=== PATIENT | male | born 1935 | race Caucasian/White ===

== ENCOUNTER 2017-03-27 10:56 | Inpatient (IN) | payer MEDICARE, MEDICAID ==
[2017-03-27] MEDS ORDERED: Sodium Chloride 0.9% 10 ML Syringe FLUSH PRN (11:14)
[2017-03-27] MEDS ORDERED: Sodium Chloride 0.9% 1,000 ML IV ONE (11:17)
[2017-03-27] MEDS ORDERED: Ertapenem 1 GM in Sodium Chloride 0.9% 100 ML IV ONE (11:52)
[2017-03-27 12:34] LABS: CHLORIDE,CL 106 mmol/L (98-107); SODIUM,NA 145 mmol/L (136-145)
[2017-03-27] MEDS ORDERED: Hydrocortisone Sodium Succinate 100 MG/2 ML SDV IVPUSH ONE (13:38)
[2017-03-27] MEDS ORDERED: Hydrocortisone Sodium Succinate 100 MG/2 ML SDV ONE (13:55)
[2017-03-27] MEDS ORDERED: Levofloxacin/Dextrose 5%-Water 750 MG in Premix Bag 1 BAG IV SCH (14:00)
[2017-03-27] MEDS: Sodium Chloride 0.9% 1,000 ML IV SCH ×2 (14:28→23:31)
--- NOTE | 2017-03-27 14:41 | PCM.HP ---
H&P History of Present Illness - General Date of Service: 03/27/17 Admit Problem/Dx: Admission Diagnosis/Problem Admission Diagnosis/Problem Pneumonia Source of Information: Patient, Senior Care Records, Old Records - History of Present Illness Initial Comments - Free Text/Narative: 81 yo [place] resident of the special care unit due to Schizoaffective disorder and dementia. He has a hx of bronchitis and smoking. He was treated for an exacerbation on 03/10 with doxycycline for 1 week and prednisone 20 mg daily for 5 days. He finished the ABX on 03/17 and tells me he really hasn't improved. Nursing noted worsening of hypoxia this morning. He normally uses 2-3 L but they increased him up to 4 L due to sats around 85%. Sats did drop to 79% briefly off oxygen for transfer in the ER from the ambulance cot. He was placed on a NRB and sats rebounded. He did receive 125 of Hydrocortisone and IV Invanz in ER. He has had only low grade fevers like 99%. He has had pneumonia before. He denies trouble swallowing or aspiration. He is on a regular diet with textured foods. He denies pain. He did receive a neb prior to leaving the [place], these were scheduled BID. He is on no maintenance inhalers. Duration of Symptoms: Reports: Week(s): - Related Data Allergies/Adverse Reactions: Allergies Allergy/AdvReac Type Severity Reaction Status Date / Time cefaclor Allergy Other Verified 03/27/17 11:13 celecoxib [From Celebrex] Allergy Other Verified 03/27/17 11:14 Penicillins Allergy Other Verified 03/27/17 11:13 Home Medications: Home Meds ARIPiprazole [Abilify] 30 mg PO DAILY 03/27/17 [History] Acetaminophen [Tylenol] 650 mg PO Q4H PRN 03/27/17 [History] Albuterol Sulfate [Proventil Hfa] 1 puff IH Q6H PRN 03/27/17 [History] Albuterol/Ipratropium [DuoNeb 3.0-0.5 MG/3 ML] 3 ml NEB Q2H PRN 03/27/17 [ History] Albuterol/Ipratropium [DuoNeb 3.0-0.5 MG/3 ML] 3 ml NEB Q6HRRT 03/27/17 [History ] Alum Hydroxide/Mag Hydroxide [Mag-Al Susp] 30 ml PO QID PRN 03/27/17 [History] Ascorbic Acid [Vitamin C] 250 mg PO DAILY 03/27/17 [History] Cholecalciferol (Vitamin D3) [Vitamin D3] 2,000 units PO DAILY 03/27/17 [History ] Dextran 70/Hypromellose [Artificial Tears] 2 drop EYEBOTH BID 03/27/17 [History] Docusate Sodium/Sennosides [Senna Plus] 2 tab PO DAILY 03/27/17 [History] Donepezil HCl [Aricept] 10 mg PO DAILY 03/27/17 [History] Iron Polysaccharides Complex [Ferrex 150] 150 mg PO DAILY 03/27/17 [History] LORazepam [Ativan] 0.5 mg PO BID PRN 03/27/17 [History] Loratadine [Claritin] 10 mg PO DAILY 03/27/17 [History] Nitroglycerin 0.4 mg SL ASDIRECTED PRN 03/27/17 [History] OLANZapine [ZyPREXA] 20 mg PO DAILY 03/27/17 [History] Parab/Cet Alc/Stryl Alc/Pg/Sls [Cetaphil Cleansing Lotion] 240 ml TP DAILY 03/27 [History] Parab/Cet Alc/Stryl Alc/Pg/Sls [Cetaphil Daily Facial Cleanser] 473 ml TP DAILY 03/27/17 [History] Polyethylene Glycol 3350 [MiraLAX] 17 gm PO DAILY 03/27/17 [History] Prednisone [IJD: predniSONE] 40 mg PO WITHBREAKFAST 03/27/17 [History] Past Medical History Cardiovascular History: Reports: CAD, Hypertension, Other (See Below) Other Cardiovascular History: chest pain Respiratory History: Reports: COPD Gastrointestinal History: Reports: Chronic Constipation Genitourinary History: Reports: Renal Disease, Urinary Incontinence Musculoskeletal History: Reports: Other (See Below) Other Musculoskeletal History: poliomyelitis Psychiatric History: Reports: Alzheimers Disease, Anxiety, Dementia, Depression , Psychosis, Other (See Below) Other Psychiatric History: schizoaffective d/o Endocrine/Metabolic History: Reports: Vitamin D Deficiency Hematologic History: Reports: Anemia - History Comment History Comment: Schizoaffective disorder, bipolar type. Admit [facility], after Rx at [facility], during which he had temporary hospitalization at the [facility] for exacerbation of COPD. See also dementia with behavior disorder. 12/14 Hosp 2 weeks at [facility] for behavioral crisis, then back to [facility]. Dementia. 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 12/13 Admit to [facility], continue F/U with Dr. Lopez. Hypertension. Details unknown, Rx Lopressor daily, will need to change to Toprol-XL. COPD (chronic obstructive pulmonary disease). Details unknown, smoking Hx unknown; 12/13 says has been on nasal oxygen many years. Hospital at [facility] for exacerbation. 01/14 Rx doxycycline for exacerbation; same again 03/16, 01/15. Coronary artery disease Details unknown, but has sternotomy scar, presumed CABG. See also COPD. Actinic keratoses. Especially on face, had been on topical steroid, D/C'd, rash or worse again so Kenalog Rx 2 weeks. Consider Derm consult if not improving, might need CryoRx or 5-FU. 01/15 Derm consult, had extensive CryoRx. Chronic kidney disease. Stage and details unknown, DX 11/13 at [facility], during hospitalization for exacerbation of COPD. creatinine 1.75, GFR 36. History of poliomyelitis. As child, residual shortening R leg, wears builtup shoe nearly 6". Has been able to walk independently Social & Family History - Family History Family Medical History: Unobtainable - Tobacco Use Smoking Status *Q: Former Smoker Years of Tobacco use: 60 Used Tobacco, but Quit: Yes Month Tobacco Last Used: unknown - Recreational Drug Use Recreational Drug Use: No H&P Review of Systems - Review of Systems: Review Of Systems: See Below General: Reports: Weakness, Fatigue, Decreased Appetite HEENT: Denies: Dysphasia, Headaches, Sinus Congestion, Sore Throat Pulmonary: Reports: Shortness of Breath, Cough, Sputum. Denies: Wheezing, Pleuritic Chest Pain, Hemoptysis Cardiovascular: Reports: Dyspnea on Exertion. Denies: Chest Pain, Palpitations , Edema, Lightheadedness Gastrointestinal: Denies: Abdominal Pain, Constipation, Diarrhea Genitourinary: Reports: No Symptoms Musculoskeletal: Reports: No Symptoms Skin: Reports: No Symptoms Psychiatric: Denies: Confusion, Depression, Anxiety, Agitation Neurological: Denies: Confusion, Dizziness, Headache Hematologic/Lymphatic: Reports: Anemia. Denies: Easy Bleeding Immunologic: Reports: No Symptoms Exam - Exam Exam: See Below - Vital Signs Vital Signs: Last Vital Signs Temp 97 F 03/27/17 11:14 Pulse 84 03/27/17 14:15 Resp 18 03/27/17 14:15 BP 117/69 03/27/17 14:15 Pulse Ox 98 03/27/17 14:15 - Exam Quality Assessment: Supplemental Oxygen General: Oriented, Other (easily arousable but sleepy). No: Mild Distress, Moderate Distress HEENT: Conjunctiva Clear, EOMI, Pupils Equal, Pupils Reactive Neck: Supple, Trachea Midline. No: JVD, Thyromegaly Lungs: Decreased Breath Sounds, Crackles, Rales (crackles noted over the left base). No: Wheezing GI/Abdominal Exam: Normal Bowel Sounds, Soft, Non-Tender Back Exam: Normal Inspection Extremities: Non-Tender, No Pedal Edema Peripheral Pulses: 2+: Dorsalis Pedis (L), Dorsalis Pedis (R) Skin: Warm, Dry, Intact Neuro Extensive - Mental Status: Alert, Oriented x3, Normal Cognition, Opens Eyes to Commands Neuro Extensive - Motor, Sensory, Reflexes: No: Normal Gait (he was too weak to observe his gait) Psychiatric: Alert, Normal Mood - Patient Data Result Diagrams: 03/27/17 11:30 03/27/17 11:30 EKG INTERPRETATION EKG Date: 03/27/17 Rhythm: NSR P-Wave: Present QRS: Normal ST-T: Normal QT: Normal Comparison: NA - No Prior EKG EKG Interpretation Comments: PACs noted *Q Meaningful Use (ADM) - VTE *Q VTE Criteria *Q: - VTE Risk Assess *Q Each Risk Factor Represents 3 Points: Age 75 Years or Greater Total Score 3 Point Risk Factors: 3 - Stroke *Q Stroke Criteria *Q: - AMI *Q AMI Criteria *Q: - Problem List (1) Lung nodule SNOMED Code(s): 297669645 ICD Code: R91.1 - SOLITARY PULMONARY NODULE Status: Acute Priority: Medium Current Visit: Yes Onset Date: ~03/27/17 Problem Details: 1.6 cm to the R upper lobe (2) Pneumonia SNOMED Code(s): 213515488 ICD Code: J18.9 - PNEUMONIA, UNSPECIFIED ORGANISM Status: Acute Priority : High Current Visit: Yes Onset Date: ~03/27/17 Problem Details: gram positive cocci in chains, patient resident of [facility] Qualifiers: Pneumonia type: due to unspecified organism Laterality: left Lung location: lower lobe of lung Qualified Code(s): J18.1 - Lobar pneumonia, unspecified organism (3) COPD with exacerbation SNOMED Code(s): 189504075, 113095805 ICD Code: J44.1 - CHRONIC OBSTRUCTIVE PULMONARY DISEASE W (ACUTE) EXACERBATION Status: Acute Priority: High Current Visit: Yes (4) Acute and chronic respiratory failure with hypoxia SNOMED Code(s): 811270800, 572199713 ICD Code: J96.21 - ACUTE AND CHRONIC RESPIRATORY FAILURE WITH HYPOXIA Status: Acute Priority: High Current Visit: Yes (5) Schizoaffective disorder SNOMED Code(s): 95973636 ICD Code: F25.9 - SCHIZOAFFECTIVE DISORDER, UNSPECIFIED Status: Chronic Priority: Medium Current Visit: Yes Qualifiers: Schizoaffective disorder type: unspecified Qualified Code(s): F25.9 - Schizoaffective disorder, unspecified (6) Dementia SNOMED Code(s): 82467094 ICD Code: F03.90 - UNSPECIFIED DEMENTIA WITHOUT BEHAVIORAL DISTURBANCE Status: Acute Current Visit: Yes Qualifiers: Dementia type: unspecified type Dementia behavioral disturbance: without behavioral disturbance Qualified Code(s): F03.90 - Unspecified dementia without behavioral disturbance (7) CAD (coronary artery disease) SNOMED Code(s): 62504783 ICD Code: I25.10 - ATHSCL HEART DISEASE OF [place] CORONARY ARTERY W/O ANG PCTRS Status: Chronic Priority: Medium Current Visit: Yes Qualifiers: Coronary Disease-Associated Artery/Lesion type: [place] artery [place] vs. transplanted heart: [place] heart Associated angina: without angina Qualified Code(s): I25.10 - Atherosclerotic heart disease of [place] coronary artery without angina pectoris (8) Anemia SNOMED Code(s): 656478993 ICD Code: D64.9 - ANEMIA, UNSPECIFIED Status: Chronic Priority: Medium Current Visit: Yes Qualifiers: Anemia type: iron deficiency Iron deficiency anemia type: unspecified iron deficiency Qualified Code(s): D50.9 - Iron deficiency anemia, unspecified (9) CKD (chronic kidney disease) stage 3, GFR 30-59 ml/min SNOMED Code(s): 227655619 ICD Code: N18.3 - CHRONIC KIDNEY DISEASE, STAGE 3 (MODERATE) Status: Chronic Priority: Medium Current Visit: Yes Problem Details: last creatinine prior to admit was 1.7 the year before it was 1.4 Problem List Initiated/Reviewed/Updated: Yes Orders Last 24hrs: Active Orders 24 hr Category Date Time Status Antiembolic Devices [RC] PER UNIT ROUTINE Care 03/27/17 14:17 Active Flutter Valve Therapy [RT Chest Physiotherapy] [RC] Care 03/27/17 14:22 Active ASDIRECTED Intake and Output [RC] 06,18 Care 03/27/17 14:16 Active Oxygen Therapy [RC] , Care 03/27/17 14:12 Active Oxygen Therapy [RC] PRN Care 03/27/17 14:15 Active Pneumonia Education [RC] Click to Edit Care 03/27/17 14:12 Active RT Aerosol Therapy [RC] ASDIRECTED Care 03/27/17 14:15 Active RT Aerosol Therapy [RC] ASDIRECTED Care 03/27/17 14:20 Active RT Incentive Spirometry [RC] 08,20 Care 03/27/17 14:12 Active Up With Assistance [RC] ,20 Care 03/27/17 14:15 Active VTE/DVT Education [RC] PER UNIT ROUTINE Care 03/27/17 14:15 Active Vital Signs [RC] 06,10,14,18,22,02 Care 03/27/17 14:15 Active Respiratory Care Assess and Treatment [CONS] Routine Cons 03/27/17 14:15 Active Regular Diet [DIET] Diet 03/27/17 Dinner Active CULTURE MRSA CLEARANCE [RM] Routine Lab 03/27/17 14:29 Ordered Albuterol/Ipratropium [DuoNeb 3.0-0.5 MG/3 ML] Med 03/27/17 14:12 Active 3 ml NEB Q4H PRN Albuterol/Ipratropium [DuoNeb 3.0-0.5 MG/3 ML] Med 03/27/17 14:30 Active 3 ml NEB Q6HRRT Heparin Sodium Med 03/27/17 14:00 Active 5,000 units SUBCUT Q12H Levofloxacin/Dextrose 5%-Water [Levaquin in D5W 750 MG/ Med 03/27/17 14:00 Active 150 ML] 750 mg Premix Bag 1 bag IV Q48H Sodium Chloride 0.9% [Normal Saline] 1,000 ml Med 03/27/17 14:30 Active IV ASDIRECTED methylPREDNISolone Sod Succ [Solu-MEDROL] Med 03/28/17 08:00 Active 40 mg IVPUSH DAILY Blood Culture x2 Reflex Set [OM.PC] Stat Oth 03/27/17 14:12 Ordered Sequential Compression Device [OM.PC] Per Unit Routine Oth 03/27/17 14:16 Ordered Resuscitation Status Routine Resus Stat 03/27/17 14:15 Ordered Medication Orders Albuterol/Ipratropium (Duoneb 3.0-0.5 Mg/3 Ml) 3 ml NEB Q4H PRN PRN Reason: Shortness Of Breath/wheezing Albuterol/Ipratropium (Duoneb 3.0-0.5 Mg/3 Ml) 3 ml NEB Q6HRRT MACY Heparin Sodium (Porcine) (Heparin Sodium) 5,000 units SUBCUT Q12H MACY Sodium Chloride (Normal Saline) 1,000 mls @ 250 mls/hr IV .BOLUS ONE Stop: 03/27/17 15:16 Last Admin: 03/27/17 11:23 Dose: 250 mls/hr Levofloxacin/Dextrose 750 mg/ (Premix) 150 mls @ 100 mls/hr IV Q48H MACY Sodium Chloride (Normal Saline) 1,000 mls @ 100 mls/hr IV ASDIRECTED MACY Last Admin: 03/27/17 14:28 Dose: 100 mls/hr Methylprednisolone Sodium Succinate (Solu-Medrol) 40 mg IVPUSH DAILY MACY Sodium Chloride (Saline Flush) 10 ml FLUSH ASDIRECTED PRN PRN Reason: Keep Vein Open Assessment/Plan Comment:: 1. Left lower lobe pneumonia health care associated with recent outpatient ABX use of Doxycycline 2. Acute on chronic hypoxic respiratory failure related to COPD exacerbation and PNA 3. COPD with acute exacerbation 4. 1.6 cm right upper lobe lung nodule 5. Dementia and Schizoaffective disorder but able to converse appropriately today 6. Chronic anemia 7. Chronic kidney disease Plan: Admit for acute cares IV fluids due to CT contrast given repeat labs in AM Change ABX to IV Levaquin 750 Q 48 hrs to cover for HCAP given recent ABX use and gram positive cocci in chains already growing. Considering adding Vanco however patient has no hx of MRSA and he is allergic to PCN and cephalosporins Blood cultures sent Continue oxygen, scheduled nebs increased to 4 x a day and also PRN Solumedrol 40 mg IV daily RT to follow for IS and flutter valve Consider a PET scan for the 1.6 cm pulmonary nodule when his current pneumonia resolves Consider speech eval for swallow if any concerns on his bedside swallow eval Patient will require at least 48 hrs of IV antibiotics Heparin for DVT prophylaxis with SCD's Code level 3 Continue home psych meds but hold for sedation Attempted to reach his guardian and daughter Iveth but her voice mail box was full number [phone]. I can give her an update later but I wanted her to know about his condition and the lung nodule and see if further work up and assessment is desired.
[2017-03-27] MEDS: Heparin Sodium 5,000 Units/ML Vial SUBCUT SCH (15:09)
[2017-03-27] MEDS: Albuterol/Ipratropium 3.0-0.5 MG/3 ML Neb Soln NEB SCH ×2 (15:13→19:36)
--- NOTE | 2017-03-27 16:07 | ER ---
Date of Service: 03/27/2017 SUBJECTIVE: Delvis presents to the emergency room via EMS. The patient is a resident at the [facility]. He is currently being treated for bronchitis with doxycycline. He just finished his 10-day course of this medication. Staff at the [facility] states that the patient has not improved and they noticed that his mental status has decreased as well as respiratory function has decreased as well. The patient is normally on oxygen per nasal cannula at 2 L/minute, but this has been increased to 4 L/minute to maintain oxygen saturations of 90%. The patient is quite confused and is unable to give much in the way of medical history. His history was obtained from the staff at the [facility]. PAST MEDICAL HISTORY: 1. Schizoaffective disorder. 2. Coronary artery disease. 3. Dementia. 4. Anemia. 5. Chronic kidney disease. MEDICATIONS: 1. Vitamin D3. 2. Vitamin C. 3. Ferrex supplement. 4. DuoNeb. 5. Prednisone. 6. MiraLAX. 7. Aluminum/magnesium hydroxide. 8. Tylenol. 9. Zyprexa. 10.Senna Plus. 11.Proventil. 12.Ativan. 13.Aricept. 14.Artificial Tears. 15.Cetaphil. 16.Loratadine. 17.Abilify. ALLERGIES: 1. Cefaclor. 2. Celebrex. 3. Penicillins. REVIEW OF SYSTEMS: Positive for fever and increased work of breathing and decreased level of consciousness according to staff at the [facility]. PHYSICAL EXAMINATION: General: This is a 81-year-old male patient, who is in [id number] amount of respiratory distress. Vital Signs: Blood pressure is 115/66, heart rate is 88, temperature is 36.1, respiratory rate is 23, O2 saturation is 97% on 10 L oxygen per non-rebreather. He was transitioned to nasal cannula at 4 L/minute and was saturating at 93%. Skin: Warm, pale, and dry. HEENT: Head is normocephalic, atraumatic. Mouth, oral mucosa is somewhat dry. No erythema or external hypopharynx. Neck: Supple. No masses. There is no lymphadenopathy. Lungs: Diminished with mild wheezing throughout. He does have a productive cough. Heart: Regular rate and rhythm. Abdomen: Soft and nontender. There is no hepatosplenomegaly or masses noted. Extremities: Without edema. Neurologic: The patient is minimally responsive, but alert to strong verbal stimuli initially. As the patient was oxygenated and rehydrated, he did become somewhat more alert, was staying awake and answering more questions about his past medical history. DIAGNOSTIC DATA: A 12-lead EKG was obtained showing a sinus rhythm without any acute ST or T-wave abnormalities. LABORATORY DATA: WBC is 11.9, hemoglobin is 9.2, platelets are 175. Coags; PT is 10.0, INR is 0.9, D-dimer is 1.19. Chemistry; sodium is 145, potassium is 4.6, chloride is 106, bicarb is 39, BUN is 34, creatinine is 1.8. GFR is 37, glucose is 97. Lactic acid is 0.7. Calcium is 9.0, corrected calcium is 9.88. Total bilirubin is 0.4. AST is 15, ALT is 16, alkaline phosphatase is 66. CK is 32, CK-MB is 0.8. CRP is 6.2. ProBNP is 750. Total protein is 6.5. Portable chest x-ray was obtained. He did have evidence of what appeared to be bibasilar infiltrates with left-sided pleural effusion. CT scan of the patient's chest was obtained and he did have no evidence of pulmonary embolism. He did again have an infiltrate on the left side as well as previously unseen pulmonary nodule. EMERGENCY ROOM COURSE: IV access was established. He was given approximately 1 L of normal saline here in the ER. He was given Invanz [address] scan, he was given 500 mL bolus of normal saline. He was also given 125 mg of Solu-Medrol IV. He remained stable in my care in the emergency room. ASSESSMENT: Healthcare acquired pneumonia. PLAN: I did speak with Dr. Izabella Quarles regarding admission for this patient. The patient is a code level 2, but will be admitted acutely. All questions were answered. MWK: 03/27/2017 15:25:23 MODL: 03/27/2017 15:58:44 /[id number]
[2017-03-27] MEDS ORDERED: Acetaminophen 325 MG Tab PO PRN (19:39)
[2017-03-27] MEDS ORDERED: Nitroglycerin 0.4 MG Tab.SL SL PRN (19:39)
[2017-03-27] MEDS ORDERED: Aluminum Hydroxide/Magnesium Hydroxide/Simethicone Susp 30 ML Cup PO PRN (19:48)
[2017-03-27] MEDS ORDERED: Iopamidol 612 MG/ML 100 ML Bottle IVPUSH ONE (20:52)
[2017-03-27] MEDS ORDERED: Sodium Chloride 0.9% 100 ML IV ONE (20:52)
[2017-03-27] MEDS: LORazepam 0.5 MG Tab PO PRN (21:31)
[2017-03-27] MEDS: Dextran 70/Hypromellose/PF Ophth Soln 0.9 ML UD EYEBOTH SCH (21:31)
[2017-03-27] MEDS: Albuterol/Ipratropium 3.0-0.5 MG/3 ML Neb Soln NEB PRN (23:13)
[2017-03-28] MEDS: Albuterol/Ipratropium 3.0-0.5 MG/3 ML Neb Soln NEB SCH ×4 (00:33→19:03)
[2017-03-28] MEDS: Heparin Sodium 5,000 Units/ML Vial SUBCUT SCH ×2 (01:56→06:26)
[2017-03-28] MEDS: Albuterol/Ipratropium 3.0-0.5 MG/3 ML Neb Soln NEB PRN (03:26)
[2017-03-28] MEDS: Iron Polysaccharides Complex 150 MG Cap PO SCH (07:43)
[2017-03-28] MEDS: Dextran 70/Hypromellose/PF Ophth Soln 0.9 ML UD EYEBOTH SCH ×2 (07:43→20:43)
[2017-03-28] MEDS: Donepezil 10 MG Tab PO SCH (07:43)
[2017-03-28] MEDS: methylPREDNISolone Sodium Succinate 40 MG/1 ML SDV IVPUSH SCH (07:43)
[2017-03-28] MEDS: OLANZapine 10 MG Tab PO SCH (07:46)
[2017-03-28] MEDS: LORazepam 0.5 MG Tab PO PRN (07:47)
[2017-03-28] MEDS ORDERED: ARIPIPRAZOLE 30 MG PO SCH (08:00)
[2017-03-28] MEDS: Sodium Chloride 0.9% 1,000 ML IV SCH ×2 (10:06→23:18)
--- NOTE | 2017-03-28 11:35 | PN ---
Progress Note for CASPER JAIN Date: 03/28/2017 Room #: VM.215 SUBJECTIVE: This is hospital day #2 on a 81-year-old admitted with a left lower lobe pneumonia from the [facility], failing oral doxycycline. He started having low-grade fevers up to 100.4 last this morning at 6:30. Oxygen saturations continue to run in the mid to low 80s on 4 L. He says his breathing is not bad. He is still coughing. Nursing has observed him eating and they did not feel he was aspirating. He denies any pain. He had a loose stool. He did have 1000 of urine output last evening. He had 400 residual this morning before voiding. OBJECTIVE: Vital Signs: His temperature is 99.5 currently, pulse 77, blood pressure 114/53, respiratory rate 18, O2 86% on 4 L. General: He is in no acute distress. Heart: Regular rate and rhythm. S1, S2 without murmur. Respiratory: Lungs sounds show expiratory rhonchi throughout. I did not appreciate any wheezing. He does have more rhonchi and crackles in the left base. Abdomen: Nondistended, nontender. Positive bowel sounds. Extremities: Warm and dry. No edema. Mental Status: He is alert. He is aware he is at the hospital. Otherwise discussion was had with his daughter today. She asked about CO2 level. We talked about his code 2 status and the fact that we did not pursue the CO2. At this point, he is easily arousable. Able to answer questions. ASSESSMENT: 1. Pneumonia, healthcare-associated, left lower lobe due to gram-positive cocci in chains, of which culture is pending. His blood cultures are negative so far. We will continue him on the IV Levaquin every other day. He did get a dose of IV Invanz yesterday. 2. Lung nodule 1.6 cm to the right upper lobe. Discussed with his stepdaughter, his guardian Salomón. She declines any further workup or testing for this. 3. Chronic obstructive pulmonary disease with exacerbation. We will continue the patient on IV Solu-Medrol 40 mg daily and the Levaquin. We will continue oxygen. We will continue scheduled and p.r.n. nebs. 4. Acute on chronic respiratory failure with hypoxia. We will continue oxygen. The patient is doing mouth breathing. We will try to reassess and make sure he stays alert and does nose breathing or we will switch him over to the non-rebreather or face mass. 5. Schizoaffective disorder, E[place] is not available at the hospital. We will hold it for now as he has been more sedated. 6. Dementia. 7. Coronary artery disease with previous bypass. 8. Significant smoking history, but quit about 4 years ago. 9. Chronic anemia. We will repeat a CBC tomorrow. 10.Chronic kidney disease stage 3. Baseline around 1.7. He did get the IV contrast. We will continue him on IV fluids. We will slow the rate down to 75 mL/h. We will monitor renal function closely. If he has postvoid residuals over 500 or 600, we will place a catheter for strict I's and Os, although the patient was not too excited about this. His proBNP was also mildly elevated, but I suspect this is due more so to his renal failure. PLAN: At this point, the patient will continue acute cares. I will decrease IV fluids and repeat a chest x-ray today. I scheduled lab work for tomorrow. I have updated his daughter no further workup for the pulmonary nodule. We will have nurse do an official bedside swallow eval and get speech involved if needed and I do not feel this is just an aspiration problem, but we will continue to monitor that closely as well. JAVON: 03/28/2017 10:40:04 MODL: 03/28/2017 11:27:23 /[id number]
[2017-03-28] MEDS: Omeprazole 20 MG Cap.CR PO SCH (12:39)
[2017-03-28] MEDS ORDERED: Diltiazem 25 MG/5 ML SDV IVPUSH ONE (15:47)
[2017-03-28] MEDS ORDERED: Heparin Sodium 5,000 Units/ML Vial SUBCUT SCH (18:00)
[2017-03-29] MEDS: Albuterol/Ipratropium 3.0-0.5 MG/3 ML Neb Soln NEB SCH ×4 (00:48→18:00)
[2017-03-29] MEDS: LORazepam 0.5 MG Tab PO PRN (04:39)
[2017-03-29] MEDS: Omeprazole 20 MG Cap.CR PO SCH (06:37)
[2017-03-29] MEDS: methylPREDNISolone Sodium Succinate 40 MG/1 ML SDV IVPUSH SCH (07:45)
[2017-03-29] MEDS: Donepezil 10 MG Tab PO SCH (07:45)
[2017-03-29] MEDS: OLANZapine 10 MG Tab PO SCH (07:45)
[2017-03-29] MEDS: Iron Polysaccharides Complex 150 MG Cap PO SCH (07:45)
[2017-03-29] MEDS: Dextran 70/Hypromellose/PF Ophth Soln 0.9 ML UD EYEBOTH SCH ×2 (07:45→19:29)
[2017-03-29] MEDS ORDERED: methylPREDNISolone Sodium Succinate 40 MG/1 ML SDV IVPUSH SCH (08:50)
[2017-03-29] MEDS ORDERED: Levofloxacin 500 MG Tab PO SCH (09:00)
[2017-03-29] MEDS: Ertapenem 1 GM in Sodium Chloride 0.9% 100 ML IV SCH (09:14)
--- NOTE | 2017-03-29 10:04 | PN ---
Progress Note for CASPER JAIN Date: 03/29/2017 Room #: VM.215 SUBJECTIVE: Hospital day #3 on a 81-year-old admitted with a left lower lobe pneumonia. The patient went into atrial fibrillation with RVR yesterday. He did get a dose of Cardizem, and he slowed back down. His heart rates have been below 100 now on telemetry. O2 saturations were quite low this morning at 87% on 6 L, but after his neb, he improved to 93% on 6 L. He is normally on 2 to 4 L of oxygen at the long term. He tells me his breathing is fair. He is still coughing a lot. He had some low-grade temps, 100.4 yesterday morning, but has been afebrile since. Otherwise, he denies pain, no diarrhea, and no burning with urination. OBJECTIVE: Vital Signs: His temperature is 98.8, pulse 105, blood pressure 128/66, respiratory rate 20, and O2 93 on 6 L. General: He is in no acute distress. Heart: Regular rate and rhythm. Lungs: Sounds are decreased in both bases with crackles noted over the left base. Abdomen: Nondistended and nontender with positive bowel sounds. Extremities: Warm and dry. He has no leg swelling. Mental Status: He is alert, and he is orientated x3. LABORATORY DATA: Lab work does show white count of 10.5 and hemoglobin 9, stable. He did have positive Hemoccults yesterday. Hemoglobin had dropped to 8.5. He was taken off heparin. Platelets 172. Sodium 144, potassium 43, chloride 109, bicarb 34, BUN 33, and creatinine 1.8, stable since admission. Calcium 8.4. ASSESSMENT: 1. Healthcare-associated pneumonia, left lower lobe. White count went up slightly today. I am going to go ahead and give him 1 more dose of IV Invanz, as he is growing Staph epi in his sputum, and he is allergic to penicillin and cephalosporins. He is also on Levaquin every other day. We will repeat lab work tomorrow. Hopefully, he will be discharged home to the care center. 2. Right upper lobe lung nodule, 1.6 cm. Discussed with the patient that I would also discuss with Iveth, his guardian. At this point, we will not do any further workup. 3. Chronic obstructive pulmonary disease with exacerbation. He is on IV Solu- Medrol. I will decrease it to 20 mg daily, as he is no longer wheezing. 4. Crvzm-[id number] respiratory failure with hypoxia. He is on oxygen. He is on nebs. He is on incentive spirometry. RT has been instructed to work with the flutter valve. 5. Schizoaffective disorder. Abilify has been on hold. It is not available at the hospital. He has had no behaviors. We will continue his other home medications. 6. Dementia. 7. History of coronary artery disease. 8. Significant smoking history. 9. Chronic anemia with Hemoccult-positive stools. Hemoglobin stable today. 10.Chronic kidney disease, stage 3. Baseline around 1.7. He is at 1.8 today. PLAN: At this point, the patient will continue acute cares. His eating has been good, but his oral liquids have been poor, so we will continue IV fluids at 75 mL/hour. We will repeat all lab work tomorrow. We will continue with Levaquin, but I will switch it over to oral and give him a dose of IV Invanz today. I am going to decrease Solu-Medrol. Anticipate that he will likely be stable for discharge back to the [facility] tomorrow. JAVON: 03/29/2017 08:49:05 MODL: 03/29/2017 09:53:31 /[id number]
[2017-03-29] MEDS: Sodium Chloride 0.9% 1,000 ML IV SCH (13:49)
[2017-03-30] MEDS: Sodium Chloride 0.9% 1,000 ML IV SCH (00:56)
[2017-03-30] MEDS: Albuterol/Ipratropium 3.0-0.5 MG/3 ML Neb Soln NEB SCH ×2 (00:58→06:37)
[2017-03-30 06:19] VITALS: BP 124/78
[2017-03-30] MEDS: Omeprazole 20 MG Cap.CR PO SCH (06:36)
[2017-03-30] MEDS: Ertapenem 1 GM in Sodium Chloride 0.9% 100 ML IV SCH ×2 (07:57→08:13)
[2017-03-30] MEDS: OLANZapine 10 MG Tab PO SCH (07:58)
[2017-03-30] MEDS: Donepezil 10 MG Tab PO SCH (07:58)
[2017-03-30] MEDS: Iron Polysaccharides Complex 150 MG Cap PO SCH (07:58)
[2017-03-30] MEDS: Dextran 70/Hypromellose/PF Ophth Soln 0.9 ML UD EYEBOTH SCH (07:58)
[2017-03-30] MEDS ORDERED: predniSONE 20 MG Tab PO SCH (09:15)
--- NOTE | 2017-03-31 05:29 | DISCH ---
PRIMARY DISCHARGE DIAGNOSES: 1. Healthcare-associated left lower lobe pneumonia due to Staphylococcus epidermidis. 2. Acute on chronic hypoxic respiratory failure secondary to pneumonia and chronic obstructive pulmonary disease exacerbation. 3. Chronic obstructive pulmonary disease exacerbation with frequent exacerbations on specified severity. 4. Right upper lobe lung nodule, 1.6 cm. Further workup is not desired by his guardian. I discussed with Delvis and he agreed. 5. Schizoaffective disorder, longstanding. 6. Dementia without any behavioral disturbance currently. 7. Coronary artery disease by history, stable without chest pain. 8. Significant smoking history. 9. Chronic anemia with Hemoccult-positive stools, chronically on iron. Prilosec was started. No further workup recommended. This is a longstanding problem of iron deficiency anemia. 10.Chronic kidney disease stage III. Baseline around 1.7. Creatinine 1.7 on discharge. 11.Episode of atrial fibrillation with rapid ventricular response due to acute illness, resolved within a few hours. No further treatments or workup recommended. No Coumadin started due to concerns for gastrointestinal blood losses. No aspirin started due to concerns for possible gastritis or gastrointestinal bleeding. REASON FOR ADMISSION: On the date of admission, this 81-year-old male, who is a resident of [facility], was brought over from the intermediate due to low O2 saturations, low-grade fevers, and cough. He had been previously treated as an outpatient with doxycycline, however, his symptoms returned. He was found to have a left lower lobe pneumonia. Due to an elevated D-dimer, he did undergo CT PE protocol, which was negative for PE, but did show the right upper lobe 1.6 cm nodule. He otherwise was given IV Invanz in the ER and started on IV vancomycin 750 q.48 hours. He did well, but spiked a low-grade fever 100.4 by his second hospital day with white count, which had initially improved down from 11,000 to normal had went up slightly back to 10.5. He received another dose of IV Invanz. He otherwise had close monitoring of his renal function with IV contrast. He was also given IV fluids. Creatinine remained stable and improved to 1.7 throughout his stay. Otherwise, overall he was doing good, but he was having some black stools. His hemoglobin had dropped from 9.2 to 8.5. Hemoccult was tested and was positive for blood. He was started on oral Prilosec. He did have a hemoglobin repeat then at 9.29 and 8.9 with no further episodes of melena or concerns for active bleeding. He did have chronic iron deficiency. His proBNP was mildly elevated on admission at 750. We repeated a chest x-ray on his second hospital day to ensure that we were not giving him too much fluid. The x-ray looked good with actually some improvement in the pneumonia. He was quite hypoxic during his stay, requiring up to 6 L of nasal cannula, which he would occasionally do more mouth breathing, but did not really keep on the non-rebreather mask, therefore, he was using the 6 L with continued encouragement to remain alert and breathe through his nose. Otherwise, he had normally been on 2 to 4 L at the intermediate chronically. Otherwise, he denied any chest pain. He had no leg swelling. He did receive subcutaneous heparin until the Hemoccult returned positive. He had no significant behaviors throughout his stay. Abilify had to be held as it was not available at the hospital, but he did continue his Zyprexa. PHYSICAL EXAMINATION: Vital Signs: Otherwise, his temperature on discharge was 97.5, pulse 84, blood pressure 124/78, respiratory rate 18, and O2 of 89% on 6 L. General: He was in no acute distress. Heart: Regular rate and rhythm. S1, S2 without murmur. Lungs: Lung sounds show diffuse rhonchi in both bases, but otherwise no inspiratory or expiratory wheezing. Abdomen: Positive bowel sounds. Soft and nontender. Extremities: Warm and dry. No edema. Mental status: He is alert. He is aware he is at the hospital. He recognizes me as the physician who saw him the day before, but he did not realize how many days he had been in the hospital. It should also be noted the patient did receive IV Solu-Medrol during his stay at doses 40 mg daily, and then down to 20 mg daily. Blood sugars when checked on his panel were no higher than 133. DISCHARGE PLANS AND INSTRUCTIONS: He is going back up to [facility] today. He will continue on the 6 L of oxygen to be titrated down as needed when he recovers. He will have a repeat BMP and CBC in 2 weeks[address] He will see Dr. Morris on intermediate rounds. He will have a repeat chest x-ray in 1 month to ensure resolution of the pneumonia. However, if it does not resolve, further workup for lung masses is likely not indicated based on my discussion with his guardian, Iveth, who did not feel that we should put him through further aggressive treatment or investigations. He will also be on omeprazole 20 mg daily for 1 more month, prednisone 20 mg daily for 5 days, and Levaquin 750 q.48 hours for 4 more doses with next dose due tomorrow. Greater than 30 minutes spent on the discharge process. MKA: 03/30/2017 08:48:35 MODL: 03/31/2017 05:22:17 /[id number]
== END 2017-03-30 09:40 | DRG 190 ==
LOC: VM.ED 10:56 → VM.MS 13:39
PROVIDERS: ADMIT Internal Medicine; ATTEND Family Medicine
DX: J44.0 Chronic obstructive pulmonary disease with (acute) lower respiratory infection (principal); J18.9 Pneumonia, unspecified organism; J96.21 Acute and chronic respiratory failure with hypoxia; I25.10 Atherosclerotic heart disease of native coronary artery without angina pectoris; N18.9 Chronic kidney disease, unspecified; I25.810 Atherosclerosis of coronary artery bypass graft(s) without angina pectoris; F03.90 Unspecified dementia, unspecified severity, without behavioral disturbance, psychotic disturbance, mood disturbance, and anxiety; Y95 Nosocomial condition; J44.1 Chronic obstructive pulmonary disease with (acute) exacerbation; B95.7 Other staphylococcus as the cause of diseases classified elsewhere; Z88.8 Allergy status to other drugs, medicaments and biological substances; R91.1 Solitary pulmonary nodule; F25.9 Schizoaffective disorder, unspecified; I12.9 Hypertensive chronic kidney disease with stage 1 through stage 4 chronic kidney disease, or unspecified chronic kidney disease; D64.9 Anemia, unspecified; D50.9 Iron deficiency anemia, unspecified; N18.3 Chronic kidney disease, stage 3 (moderate); I48.91 Unspecified atrial fibrillation; R79.1 Abnormal coagulation profile; Z88.0 Allergy status to penicillin; Z88.1 Allergy status to other antibiotic agents; Z79.899 Other long term (current) drug therapy; K59.09 Other constipation; R32 Unspecified urinary incontinence; G30.9 Alzheimer's disease, unspecified; F02.80 Dementia in other diseases classified elsewhere, unspecified severity, without behavioral disturbance, psychotic disturbance, mood disturbance, and anxiety; F32.9 Major depressive disorder, single episode, unspecified; F41.9 Anxiety disorder, unspecified; E55.9 Vitamin D deficiency, unspecified; R06.02 Shortness of breath
CPT/HCPCS: 36415; 71010; 71275; 80053; 82550; 82553; 83605; 83880; 85025; 85379; 85610; 86140; 87040 ×2; 87070; 87205; 93005; 96361; 96365; 99284; 99285; J1335; J7030; J7050; 80048; 85014; 85018; 94640-76; 94668; 94760; 96375; A9270-GY; G0328; J1644; J1720; J1956; J2920; J3490; Q9967